=== PATIENT | male | born 1955 ===

== ENCOUNTER 2017-01-22 19:48 | Inpatient (IN) | payer BC, OTHER ==
[~2017-01-22] VITALS: Ht 170.2 cm; Wt 114.1 kg
--- NOTE | ~2017-01-22 | PUL ---
PATIENT'S NAME: FUAD CORTEZ [facility] AGE: 61 Y [address] ROOM: [address] [address] LOCATION: TU ADMIT DATE: 01/22/2017 Pulmonary DISCHARGE DATE: 01/26/2017 FAMILY PHYSICIAN: Wallace Jacobson MD ATTENDING PHYSICIAN: Wagner Mcintosh NAME OF PROCEDURE: Overnight Pulse Oximetry DATE OF PROCEDURE: January 25 to January 26, 2017 REASON FOR EXAM: Nocturnal hypoxemia RESULTS: The test was performed on room air. The recording time was 6 hours, 58 minutes, and 20 seconds, with a total valid sampling time 6 hours, 58 minutes, and 12 seconds. The highest pulse 72, lowest pulse 54, with a mean pulse of 61. The highest SpO2 was 94%, lowest SpO2 was 75%, with a mean SpO2 of 90%. The patient spent 34 minutes, and 40 seconds with SpO2 less than 89%, representing 8.3% of the total sleep time. The desaturation event index was normal at 4.9. PHYSICIAN INTERPRETATION: The patient has evidence of significant nocturnal hypoxia and would qualify for supplemental oxygen as per Medicare criteria. VIJAY RUBIO MD RFAnita/ramesh /[id number] dtt: 01/29/17 0722 , VIJAY RUBIO dtd: 01/28/17 1447
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
[2017-01-22 20:38] LABS: BASOPHIL # 0.1 K/uL (0.0-0.2); BASOPHIL % 0.5 %; EOSINOPHIL # 0.1 K/uL (0.0-0.5); EOSINOPHIL % 0.3 %; HEMATOCRIT 47.3 % (37.0-53.0); HEMOGLOBIN 15.3 g/dL (11.0-16.0); IMMATURE GRANULOCYTE # 0.1 K/uL (0.0-0.3); IMMATURE GRANULOCYTE % 0.3 %; LYMPHOCYTE # 1.7 K/uL (0.8-4.0); LYMPHOCYTE % 9.3 %; MCH 28.4 pg (27.0-34.0); MCHC 32.3 gm/dL (32.0-36.5); MCV 87.8 fl (83.0-98.0); MONOCYTE # 0.9 K/uL (0.0-1.0); MPV 9.3 fl (9.4-12.4); NEUTROPHIL # (ANC) 14.9 K/uL (1.4-9.0); NEUTROPHIL % 84.6 %; NRBC % 0 /100WBC (0-0.00); PLATELET COUNT 275 K/uL (150-450); RBC 5.39 M/uL (3.50-5.50)
[2017-01-22 20:39] LABS: WBC 17.7 K/uL (4.0-11.0)
[2017-01-22 20:44] LABS: BICARBONATE 22.9 mmol/L (18.0-23.0); PCO2 51 mmHg (35-45); PO2 78 mmHg (80-90)
[2017-01-22 20:48] LABS: INR - (THERAPEUTIC) 1.04 (0.92-1.07); PROTIME 10.9 SECONDS (9.8-11.4); PTT 25 SECONDS (25-32)
[2017-01-22 20:53] LABS: ANION GAP 12.6 (10.0-19.0); BLOOD UREA NITROGEN 28 mg/dL (6-24); CHLORIDE 107 mMol/L (96-110); CREATININE 1.6 mg/dL (0.6-1.3); ESTIMATED GFR (MDRD EQUATION) 44; POTASSIUM 4.6 mMol/L (3.7-5.1); SODIUM 139 mMol/L (135-145)
[2017-01-22 21:18] LABS: BILIRUBIN URINE NEGATIVE (NEGATIVE); BLOOD URINE 10 /UL (NEGATIVE); COLOR URINE YELLOW (YELLOW); GLUCOSE URINE 100 mg/dL (NEGATIVE); KETONE URINE NEGATIVE (NEGATIVE); LEUKOCYTES URINE NEGATIVE /UL (NEGATIVE); NITRITE URINE NEGATIVE (NEGATIVE); PROTEIN URINE 100 mg/dL (NEGATIVE); SPEC GRAVITY URINE 1.025 (1.003-1.035); UROBILINOGEN URINE NORMAL (NORMAL)
[2017-01-22 21:19] LABS: TURBIDITY URINE CLEAR (CLEAR)
[2017-01-22 21:36] LABS: AMORPHOUS URINE 2+ (NEGATIVE); BACTERIA URINE FEW (NEGATIVE); RBC URINE RARE #/HPF (NEGATIVE)
[2017-01-23] MEDS ORDERED: ASPIRIN325 MG PO (00:56)
[2017-01-23] MEDS ORDERED: ATORVASTATIN CA40 MG PO (00:58)
[2017-01-23] MEDS ORDERED: AVAPRO150 MG PO (00:59)
[2017-01-23] MEDS ORDERED: [UNRECOGNIZED DRUG - SUPPLY] PO (01:00)
[2017-01-23] MEDS ORDERED: GARLIC1000 MG PO (01:01)
[2017-01-23] MEDS ORDERED: NORCO 5-325 TA1 EACH PO (01:04)
[2017-01-23] MEDS ORDERED: JANUVIA 100 MG100 MG PO (01:05)
[2017-01-23] MEDS ORDERED: LOVAZA1 GM PO (01:05)
[2017-01-23] MEDS ORDERED: GLUCOPHAGE XR500 M1 PO (01:15)
[2017-01-23] MEDS ORDERED: PROVIGIL200 MG PO (01:16)
[2017-01-23] MEDS ORDERED: THERAGRAN-M1 TAB PO (01:16)
[2017-01-23] MEDS ORDERED: NASONEX NASAL S17 GM NOSE (01:17)
[2017-01-23] MEDS ORDERED: OMEPRAZOLE40 MG PO (01:18)
[2017-01-23] MEDS ORDERED: TOUJEO SOL300 UNIT/1 SUB-Q (01:19)
[2017-01-23] MEDS ORDERED: TRICOR 145 MG145 MG PO (01:20)
[2017-01-23 05:16] LABS: BASOPHIL # 0.1 K/uL (0.0-0.2); BASOPHIL % 0.4 %; EOSINOPHIL # 0.1 K/uL (0.0-0.5); EOSINOPHIL % 0.6 %; HEMATOCRIT 46.1 % (37.0-53.0); HEMOGLOBIN 14.7 g/dL (11.0-16.0); IMMATURE GRANULOCYTE # 0.1 K/uL (0.0-0.3); IMMATURE GRANULOCYTE % 0.4 %; LYMPHOCYTE # 2.3 K/uL (0.8-4.0); LYMPHOCYTE % 16.4 %; MCH 28.4 pg (27.0-34.0); MCHC 31.9 gm/dL (32.0-36.5); MONOCYTE # 0.9 K/uL (0.0-1.0); MONOCYTE % 6.4 %; MPV 9.3 fl (9.4-12.4); NEUTROPHIL # (ANC) 10.5 K/uL (1.4-9.0); NEUTROPHIL % 75.8 %; NRBC % 0 /100WBC (0-0.00); PLATELET COUNT 258 K/uL (150-450); RBC 5.18 M/uL (3.50-5.50); RDW-CV 13.9 % (11.9-14.6); WBC 13.9 K/uL (4.0-11.0)
[2017-01-23 05:37] LABS: ALBUMIN 3.3 gm/dL (3.5-5.0); ANION GAP 11.7 (10.0-19.0); CALCIUM 8.6 mg/dL (8.5-10.5); CREATININE 1.3 mg/dL (0.6-1.3); PHOSPHORUS 3.8 mg/dL (2.5-4.9); POTASSIUM 4.7 mMol/L (3.7-5.1)
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
--- NOTE | 2017-01-23 07:33 | NUR ---
Significant Event: Patient admitted to ICU at 2245. Hypertensive and on 4L nasal cannula. 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 Voiding per urinal without difficulity. Right chest tube with 47 ml out this shift. at bedside and assists with cares. Follow up: continue to monitor
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
--- NOTE | 2017-01-23 14:18 | NUR ---
Significant Event:A/O X 3. Very [facility]. Ambulatory at home, but has not been out of bed this AM, because of vomiting. HR 50's. SBP 110-140's. No edema. Sats > 90% on 4L/NC. Lungs clear uppers, diminished no the right. CT to 20 suction on the wall, serous drainage, dressing c/d/i. 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 Zofran given for nausea. Taking sips of clears. BM yesterday. NS infusing. 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 Report to TRISHA LAMB on NTU. Follow up:PT to get up.
--- NOTE | 2017-01-23 15:10 | NUR ---
Significant Event: PATIENT ICU TRANSFER AT 0915. A/O X 3. FOLLOWS COMMANDS. STRONG STRENGTH. DENIES NUMBNESS/TINGLING. RIB FX'S TO RT SIDE, PAINFUL MOSTLY ONLY WITH MOVEMENT. 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 ZOFRAN GIVEN IN ICU AT 0800 AND THEN I GAVE PHENERGAN AT 1115. PATIENT FEELING MUCH BETTER WITH MORPHINE PAPER BAG MACHINE OPERATOR OFF NOW. PAIN FAIRLY TOLERABLE WITH PRN NORCO. LAST AT 1330. LUNGS CLEAR, MORE DIMINISHED ON THE RIGHT. [place] DRAIN INTACT TO RT SIDE, 2OCM SUCTION. CURRENTLY ON 1 LITER OF O2. IV IN LEFT A/C SALINE LOCKED AND RT WRIST, NORMAL SALINE INFUSING. MAY SALINE LOCK WHEN TOLERATING PO WELL. CONTINUES ON CLEAR LIQUID DIET AT THIS TIME. UP WITH 2 ASSIST. IS GIVEN TO PATIENT. ALARMS ON FOR SAFETY. AT BEDSIDE, VERY HELPFUL. Follow up: ACCUCHECKS AC/HS. PAIN CONTROL. MONITOR CHEST TUBE.
--- NOTE | 2017-01-24 05:47 | NUR ---
Significant Event: A/Ox3. 2L O2 NC VSS. Ambulates 1-2A with walker and gait belt. [place] chest tube to right chest on suction. 10ml output this shift. Takes [place] for pain 1-2tabs q4h prn. ACHS accuchecks and takes oral glucophage. Zofran given x1 for nausea after 0300. Chest xray done this morning. Family at bedside part of the evening. Follows all commands and denies numbness/tingling. Follow up:
--- NOTE | 2017-01-24 11:53 | NUR ---
I talked with and he maybe ready for home over the weekend. She thinks maybe [facility]hc with [facility] but not sure so to make the referral. [facility]. Note left on the chart just in case he gets dismissed over the weekend.
--- NOTE | 2017-01-24 15:14 | NUR ---
Significant Event: Patient A/O x3. Denies N/T. Follw commands. Able to make needs known. VSS. Hypertensive at times. 2L NC with sat in the mid 90s. LS clear and diminished. Right chest tube removed this shift by MD. Regular diet. Pills whole with water. Accuchecks ACHS. Dressing to R) chest C/D/I. Scattered abrasions. L) AC and R) wrist PIVs SLL. 1 assist with gaitbelt and walker. [place] X2 tabs given Q4H for pain. Relief noted. Family present in room. Patient pleasant and cooperative with cares. Follow up: CXR tomorrow, home tomorrow?
--- NOTE | 2017-01-25 03:14 | NUR ---
Significant Event: A&OX3. Denies N&T. Up 1 assist GBW. On tele SR to SB with BBB. Runs hypertensive in 150s. 2L of O2 sats in mid to low 90s. Regular diet. Drsg gauze an tape to chest tube site C/D/I. IV to L) AC SL. IV to R) wrist SL. [place] given for pain. Follow up: Chest x-ray this am. Discharge home vs [facility]
--- NOTE | 2017-01-25 15:33 | NUR ---
Significant Event: A/O x3. NEUROS INTACT. MOVES EVERYTHING SPONTANEOUSLY AND TO COMMANDS. VSS. HTN. AFEBRILE. 2L NC WITH SATS IN THE MID 90S. LS CLEAR AND DIMINISHED. AUDIBLE WHEEZE THIS AM. CLEARED UPON NEXT 2 ASSESSMENTS. VOIDS PER URINAL. BS ACTIVE X4. NO BM THIS SHIFT. REGULAR DIET. ACCUCHECKS ACHS. [place] X2 TABS GIVEN Q4H FOR PAIN. ENCOURAGED USE OF IS. I ASSIST WITH GA[place]BEL[place] AND WALKER. DRESSING TO RIGHT CHEST. C/D/T. SCATTERED ABRASIONS. PIV X2 SLL. FAMILY AT BEDSIDE. PLEASANT AND COOPERATIVE WITH CARES Follow up: HOME TOMORROW?
--- NOTE | 2017-01-26 03:55 | NUR ---
Significant Event: A&OX3. Denies N&T. Up SBA GBW. On tele SR. Trendox done during the night. VSS. Chest tube site to R) side C/D/I. Regular diet. Accuchecks AC/HS no coverage. IV to R) wrist SL. IV to L) AC SL. [place] given for pain. Follow up: Home today
--- NOTE | 2017-01-26 16:52 | NUR ---
Patient alert and oriented x3. Hypertensive during first part of shift (SBP 200's). notified. Hydralazine given x1, toradol given x1. BP came down to 160's. satisfied with result. Dulcolax suppository given prior to patient's discharge with extra large results. IV's discontinued prior to discharge. Patient discharged home at 1215.
== END 2017-01-26 12:15 | disposition disaster alternative care site (69) | DRG 199 ==
LOC: GACC 19:48 → GNTU 21:46 → GICU 21:46 → GNTU 01-23 09:13
PROVIDERS: Emergency Medicine; ADMIT Surgery
PROC: 0W9930Z Drainage of Right Pleural Cavity with Drainage Device, Percutaneous Approach (ICD-10-PCS; principal; 2017-01-22)
DX: J93.0 Spontaneous tension pneumothorax (principal); J96.00 Acute respiratory failure, unspecified whether with hypoxia or hypercapnia; K86.1 Other chronic pancreatitis; S22.41XA Multiple fractures of ribs, right side, initial encounter for closed fracture; I25.10 Atherosclerotic heart disease of native coronary artery without angina pectoris; E78.5 Hyperlipidemia, unspecified; E11.9 Type 2 diabetes mellitus without complications; K21.9 Gastro-esophageal reflux disease without esophagitis; E03.9 Hypothyroidism, unspecified; N40.0 Benign prostatic hyperplasia without lower urinary tract symptoms; V29.9XXA Motorcycle rider (driver) (passenger) injured in unspecified traffic accident, initial encounter; Z79.4 Long term (current) use of insulin; Z95.5 Presence of coronary angioplasty implant and graft
CPT/HCPCS: G0480; J0360; J1650; J1885; J2270; J2405; J2550; J7030

== ENCOUNTER → 2017-01-22 | Outpatient (CLI) | payer BC, OTHER ==
[~2017-01-22] MED LIST: ASPIRIN325 MG PO; ATORVASTATIN CA40 MG PO; AVAPRO150 MG PO; GARLIC1000 MG PO; GLUCOPHAGE XR500 M1 PO; JANUVIA 100 MG100 MG PO; LOVAZA1 GM PO; NASONEX NASAL S17 GM NOSE; NORCO 5-325 TA1 EACH PO; OMEPRAZOLE40 MG PO; PROVIGIL200 MG PO; THERAGRAN-M1 TAB PO; TOUJEO SOL300 UNIT/1 SUB-Q; TRICOR 145 MG145 MG PO; [UNRECOGNIZED DRUG - SUPPLY] PO
== END | disposition disaster alternative care site (69) ==
LOC: GAIR 19:00
DX: S27.309A Unspecified injury of lung, unspecified, initial encounter (principal); S27.0XXA Traumatic pneumothorax, initial encounter; E11.9 Type 2 diabetes mellitus without complications; I10 Essential (primary) hypertension; I25.10 Atherosclerotic heart disease of native coronary artery without angina pectoris; G89.11 Acute pain due to trauma; E03.9 Hypothyroidism, unspecified; Z79.82 Long term (current) use of aspirin; Z79.891 Long term (current) use of opiate analgesic; Z79.4 Long term (current) use of insulin; Z79.899 Other long term (current) drug therapy; V29.9XXA Motorcycle rider (driver) (passenger) injured in unspecified traffic accident, initial encounter
CPT/HCPCS: A0422; A0431; A0436; J2405; J3010; J7030